=== PATIENT | female | born 1965 | race Caucasian/White ===

== ENCOUNTER 2017-11-15 11:06 | Outpatient (CLI) | payer OTHER | END 2017-11-15 11:07 | disposition home or self-care (01) | LOC: BICMAMMO 11:06 | PROVIDERS: ATTEND Family Medicine | DX: Z12.31 Encounter for screening mammogram for malignant neoplasm of breast (principal); Z85.828 Personal history of other malignant neoplasm of skin | CPT/HCPCS: 77063; 77067 ==

== ENCOUNTER 2019-11-10 07:17 | Outpatient (CLI) | payer OTHER ==
[2019-11-11 17:10] LABS: SARS-CoV-2 MS2 Positive; SARS-CoV-2 N Gene Negative; SARS-CoV-2 S Gene Negative; SARS-CoV-2 orf1ab Negative
== END 2019-11-10 07:18 | disposition home or self-care (01) ==
LOC: LABBT 07:17
PROVIDERS: ATTEND Student in an Organized Health Care Education/Training Program
DX: Z01.812 Encounter for preprocedural laboratory examination (principal); Z11.59 Encounter for screening for other viral diseases; C44.91 Basal cell carcinoma of skin, unspecified
CPT/HCPCS: 87635; U0003

== ENCOUNTER 2019-11-14 05:54 | Day surgery (SDC) | payer OTHER ==
[2019-11-13 12:11] VITALS: BMI 34.4
[2019-11-14] MEDS ORDERED: Lidocaine 1% w/Epinephrine 1:100K 20 ML VIAL ONE (06:40)
[2019-11-14] MEDS ORDERED: Fentanyl 100 MCG/2 ML VIAL ONE ×2 (07:07→10:40)
[2019-11-14] MEDS ORDERED: Bacitracin Zinc Ointment 30 gm TUBE ONE (09:52)
[2019-11-14] MEDS ORDERED: Promethazine HCl 25 MG/ML VIAL ONE (10:35)
[2019-11-14] MEDS ORDERED: Lidocaine 1% PF 5 ML VIAL ONE (11:23)
[2019-11-14] MEDS ORDERED: Dexamethasone 20 MG/5 ML VIAL ONE (11:23)
[2019-11-14] MEDS ORDERED: Ondansetron PF 4 MG/2 ML Vial ONE (11:23)
[2019-11-14] MEDS ORDERED: EPHEDRINE 25 MG/5 ML SYRINGE ONE (11:23)
[2019-11-14] MEDS ORDERED: PROPOFOL 200 MG/20 ML VIAL ONE (11:23)
[2019-11-14] MEDS ORDERED: Rocuronium Bromide 10 MG/ML (10ML VIAL) ONE (11:23)
--- NOTE | 2019-11-14 20:19 | EKG ---
Test Reason : PREOP Blood Pressure : / mmHG Vent. Rate : 062 BPM Atrial Rate : 062 BPM P-R Int : 150 ms QRS Dur : 070 ms QT Int : 408 ms P-R-T Axes : 019 070 061 degrees QTc Int : 414 ms Normal sinus rhythm Normal ECG No previous ECGs available Confirmed by DR. Maye BORJA MD ([id number]) on 11/14/2019 8:18:48 PM Referred By: RAVEN Confirmed By:DR. Maye BORJA MD
--- NOTE | 2019-11-15 10:34 | OP ---
DATE OF PROCEDURE: 11/14/2019 PREOPERATIVE DIAGNOSES: Right nasal sidewall basal cell carcinoma, left inferior orbital basal cell carcinoma, and vertex of the scalp lesion. POSTOPERATIVE DIAGNOSES: Right nasal sidewall basal cell carcinoma, left inferior orbital basal cell carcinoma, and vertex of the scalp lesion. PROCEDURES PERFORMED: Wide local excision of right nasal sidewall and reconstruction, left excision of inferior orbital basal cell carcinoma and reconstruction, excision of vertex of the scalp lesion with primary closure. PERMIT: Procedures, benefits, and risks including bleeding, infection, injury from anesthesia, allergic reaction, scarring, and recurrence of tumor necessitating revision surgery or repair, and alternatives were reviewed with the patient and the family, who expressed understanding of the information. A consent form was signed and witnessed, and a paper copy of the consent form is available for review in the paper chart. INDICATION: This is a female patient presenting to the clinic with the pathology report showing biopsies of the right nasal sidewall and left inferior orbital tissues showing basal cell carcinoma as well as a nonhealing wound of the vertex of the scalp along with a lesion of the vertex of the scalp. ASSISTANTS: None. FINDINGS: Right nasal sidewall lesion, left inferior orbital lesion, and vertex of the scalp lesion. DESCRIPTION OF OPERATION: The patient was brought back to the operating room and laid supine on the operating room table. General endotracheal anesthesia was administered. The right and left basal cell carcinomas on the face were injected with 1% lidocaine with 1:100,000 epinephrine, and then the patient was prepped and draped in a sterile fashion. At this point, the right nasal sidewall lesion was addressed, and a roughly 4-mm margin around the small lesion was made with a marking pen, and then a #15 blade scalpel was used to incise the skin down into the subcutaneous tissue, and then sharp scissor dissection was then used at a right angle to remove the tissue. Before the tissue was completely removed, the tissue was marked with a long stitch laterally and a short stitch superiorly at 12 o'clock in order to orient the tissue for pathologic evaluation and for negative margins. This sample was then sent for pathologic evaluation and for frozen section for negative margins. At this point, the left inferior orbital tumor was then addressed. Again, a 3- to 4-mm margin was marked around the tumor just inferior to the eyelid, and a #15-blade scalpel was used to incise through the epidermis and dermis into the subcutaneous tissue directly perpendicular to the lesion at a 90-degree angle, and then sharp dissection with iris scissors was then used to remove the tissue, dividing the subcutaneous layer, and before the tissue was completely removed at 12 o'clock a short superior stitch and a long lateral stitch was used to inocente the wide local excision for pathologic evaluation. Both specimens were sent to the pathologist for review of the margins, and short duration later, the pathologist confirmed that margins were negative and at this point, the right and left wounds were closed with 4-0 Vicryl deep sutures as well as 5-0 Prolene interrupted sutures to appropriately approximate the tissue and mirian the skin edges. Next, the patient's drapes were then taken down over the face, and the scalp lesion wound was identified, and a small amount of hair was shaved away from this area, and then the area was prepped and draped in a sterile fashion, and then a small 2-mm margin around the lesion was made and then excised the tumor in a similar fashion. A #15-blade scalpel was used to excise the lesion through the dermis and epidermis into the subcutaneous tissue, and then sharp scissors were used to remove the specimen and sent for final pathology. Hemostasis was achieved with Bovie cautery, and then deep 3-0 Vicryl sutures and superficial Prolene sutures were used to appropriately approximate the tissue and mirian the skin edges. At this point, there was no bleeding seen, and the drapes were removed, and iodine was carefully removed from the patient's face, and then this ophthalmic irrigation was then used to irrigate the patient's eyes, and then the patient before being prepped and draped, a small Ji stitch was used to protect the eyes and given the close proximity to the eyes, at this point, the 6-0 Prolene Ji stitches were removed, and the eyes were appropriately irrigated, and the patient was turned back to Anesthesia for emergence. Job ID: [id number]
--- NOTE | 2019-11-21 06:04 | PQF ---
[facility] POST DISCHARGE CLINICAL DOCUMENTATION IMPROVEMENT CLARIFICATION FORM l Todays Date: 11/21/19 l Patients Name RON MARIE l l Admit Date 11/14/19 l Disch Date 11/14/19 Water Server Name Shalini Haynes Email: [email or web address] Cell: [phone] To be completed by Water Server: Present Clinical Indicators - Signs / Symptoms Results and Location in Medical Record [ ] Documentation of: [ ] [ ] Documentation of: [ ] [ ] Documentation of: [ ] [ ] Documentation of: [ ] [ ] Risks [ ] [ ] [ ] Treatment [ ] Excised lesion; nasal & orbital Query for size of margin and size of excised basal cell carcinoma of nose and orbital [ ] right nasal side wall 1 cm lesion, left infraorbital lesion 6 mm and vertex scalp lesion 1 cm lesion. [ ] To be completed by Physician: KOBI BRUSH The documentation in this patients record requires clarification to ensure coding compliance and accuracy. Check the appropriate box and include in your discharge summary. [ ] [ ] [ ] [ ] Please check this box if this does not apply to this patient [ ] Unable to determine [ ] Other diagnosis: Review the following information and exercise your independent professional judgment in responding to the clarification. Based upon the clinical findings, risk factors, and treatment, please clarify if you are treating one of the above probable or suspected diagnoses. Physician Signature: Date Time MTDD
== END 2019-11-14 12:10 | disposition home or self-care (01) ==
LOC: SDC 05:54
PROVIDERS: ATTEND Student in an Organized Health Care Education/Training Program
PROC: 0HB0XZZ Excision of Scalp Skin, External Approach (ICD-10-PCS; principal; 2019-11-14)
PROC: 0HB1XZZ Excision of Face Skin, External Approach (ICD-10-PCS; principal; 2019-11-14)
DX: C44.1192 Basal cell carcinoma of skin of left lower eyelid, including canthus (principal); C44.311 Basal cell carcinoma of skin of nose; L57.0 Actinic keratosis; Z79.899 Other long term (current) drug therapy; Z91.040 Latex allergy status; X32.XXXA Exposure to sunlight, initial encounter
CPT/HCPCS: 36415; 85014; 88305; 88312; 88331; 88332; 93005; 93010; J1100; J2001; J2405; J2550; J2704; J3010

== ENCOUNTER 2020-08-01 07:49 | Outpatient (CLI) | payer OTHER ==
--- NOTE | 2020-08-01 08:25 | MMO ---
Bilateral MAMMO Bilat Screen [facility]. CLINICAL HISTORY: Patient is 55 years old and is seen for screening. The patient has the following family history of breast cancer: female cousin, malignant (generic), X2; great aunt, malignant (generic), MATERNAL; maternal aunt, malignant (generic) and maternal grandmother, malignant (generic). The patient has a history of melanoma. VIEWS: The views performed were: bilateral craniocaudal with tomosynthesis and bilateral mediolateral oblique with tomosynthesis. FILMS COMPARED: The present examination has been compared to a prior imaging study performed at [facility] on 11/15/2017. This study has been interpreted with the assistance of computer-aided detection. MAMMOGRAM FINDINGS: The breasts are heterogeneously dense, which could obscure a lesion on mammography. There are no suspicious masses, suspicious calcifications, or new areas of architectural distortion. IMPRESSION: THERE IS NO MAMMOGRAPHIC EVIDENCE OF MALIGNANCY. A ROUTINE FOLLOW-UP MAMMOGRAM IN 1 YEAR IS RECOMMENDED. THE RESULTS OF THIS EXAM WERE SENT TO THE PATIENT. ACR BI-RADS Category 1 - Negative MAMMOGRAPHY NOTE: 1. A negative mammogram report should not delay a biopsy if a dominant of clinically suspicious mass is present. 2. Approximately 10% to 15% of breast cancers are not detected by mammography. 3. Adenosis and dense breasts may obscure an underlying neoplasm. Reported by: LORNE MARTINEZ MD Electonically Signed: [id number]
== END 2020-08-01 07:50 | disposition home or self-care (01) ==
LOC: BICMAMMO 07:49
PROVIDERS: ATTEND Family Medicine
DX: Z12.31 Encounter for screening mammogram for malignant neoplasm of breast (principal); Z80.3 Family history of malignant neoplasm of breast; Z85.820 Personal history of malignant melanoma of skin
CPT/HCPCS: 77063; 77067

== ENCOUNTER 2021-07-10 14:50 | Outpatient (CLI) | payer BC, OTHER | END 2021-07-10 14:51 | disposition home or self-care (01) | LOC: BICRAD 14:50 | PROVIDERS: ATTEND Family Medicine | DX: J06.9 Acute upper respiratory infection, unspecified (principal); R05.9 Cough, unspecified | CPT/HCPCS: 71046 ==